=== PATIENT | female | born 1955 | race Caucasian/White ===

== ENCOUNTER 2016-10-22 10:08 | Emergency (ER) | payer OTHER ==
[~2016-10-22] VITALS: Ht 168.9 cm; Wt 54.0 kg
[~2016-10-22 10:08] MED LIST: ABILIFY 10 MG10 MG PO; ATORVASTATIN CA10 MG PO; CLONAZEPAM0.5 MG PO; FIORICET 325 MG1 TAB PO; ONABOTULINUMTOXINA; PRISTIQ100 MG PO; TOPIRAMATE50 MG PO; TREXIMET 500 MG1 TAB PO; VICODIN5-300 PO
[2016-10-22] MEDS ORDERED: CLONAZEPAM0.5 M2 PO (11:17)
[2016-10-22] MEDS ORDERED: PRISTIQ ER100 MG PO (11:17)
[2016-10-22] MEDS ORDERED: ABILIFY10 M1 PO (11:17)
[2016-10-22] MEDS ORDERED: ATORVASTATIN CA10 M1 PO (11:18)
[2016-10-22] MEDS ORDERED: TOPIRAMATE50 M1 PO (11:18)
[2016-10-22] MEDS ORDERED: BOTOX100 UNIT (11:19)
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
[2016-10-22 12:16] VITALS: BP 94/64
[2016-10-22 12:34] LABS: ABSOLUTE BASOPHIL COUNT 0 /CUMM (0.0-0.2); ABSOLUTE EOSINOPHIL COUNT 0.1 /CUMM (0.0-0.7); ABSOLUTE GRANULOCYTE CT 3.1 /CUMM (1.4-6.5); ABSOLUTE LYMPH COUNT 1.7 /CUMM (1.2-3.4); ABSOLUTE MONOCYTE COUNT 0.3 /CUMM (0.10-0.60); BASOPHIL % 0.1 % (0.0-2.0); EOSINOPHIL % 1.5 % (0-5); GRANULOCYTE % 59.7 % (42.2-75.2); HEMATOCRIT 40.6 % (37-47); MEAN CORPUSCULAR HGB 30.4 PG (27.0-31.0); MEAN CORPUSCULAR HGB CONC 33.8 G/DL (33.0-37.0); MEAN CORPUSCULAR VOLUME 89.9 FL (81.0-99.0); MEAN PLATELET VOLUME 8.5 FL (7.4-10.4); PLATELET COUNT 238 /CUMM (130-400); RBC DISTRIBUTION WIDTH 14.1 % (11.5-14.5); RED BLOOD CELL CT 4.52 /CUMM (4.20-5.40); WHITE BLOOD CELL COUNT 5.2 /CUMM (4.8-10.8)
== END 2016-10-22 13:11 ==
LOC: ERH 10:08
PROVIDERS: Physician Assistant
DX: T43.595A Adverse effect of other antipsychotics and neuroleptics, initial encounter (principal); R51 Headache; R42 Dizziness and giddiness; W19.XXXA Unspecified fall, initial encounter; Y93.9 Activity, unspecified; Y92.9 Unspecified place or not applicable
CPT/HCPCS: 93005; 93010